=== PATIENT | female | born 1990 | race Caucasian/White ===

== ENCOUNTER 2016-10-07 18:15 | Emergency (ER) | payer OTHER ==
[2016-10-07 18:32] VITALS: PULSE 76; RESP 16
--- NOTE | 2016-10-07 19:20 | EDPHY ---
H & P Time Seen by Provider: 10/07/16 18:38 HPI/ROS: HPI Rectal bleeding. 26-year-old female by private vehicle with her boyfriend. This patient reports that she had a bowel movement at approximately 5:30 p.m.. She reports that she noticed some blood on the toilet paper after this bowel movement and noticed that there was some blood mixed in with the stool. She also noted a couple of drops of blood in the toilet bowl water itself. She describes a bowel movement is otherwise normal. She has not had any diarrhea or significant constipation. Last menstrual period was 1 month ago. She denies any vaginal bleeding currently. ROS: Constitutional: No fever, no chills. No weakness. Respiratory: No cough. No shortness of breath. Cardiac: No chest pain, no palpitations. Gastrointestinal: No abdominal pain, no vomiting, no diarrhea. Genitourinary: No hematuria. No dysuria or increased frequency with urination. As above. Musculoskeletal: No back pain. No neck pain. No myalgias or arthralgias. Skin: No rashes. Neurological: No headache. No focal weakness or altered sensation. Past medical history: She denies any significant past medical history. Social history: Here with her boyfriend. Nonsmoker. Physical Exam: General Appearance: Alert, no distress. This patient is responding to questions appropriately and in full sentences. This patient appears well- hydrated and well-nourished. Eyes: Pupils equal and round no pallor or injection. No lid edema, erythema or injection. Gastrointestinal: Abdomen is soft and nontender, no masses, bowel sounds normal. No focal tenderness at McBurney's point. No Khan sign. Rectal exam: No external hemorrhoids. Normal rectal tone. No gross bleeding. No gross blood on digital examination. No masses palpated. No anal fissures. Minimal stool in the rectal vault. Neurological: Motor sensory function is grossly intact. Cranial nerves are normal. Gait is normal. Skin: Warm and dry, no rashes. Musculoskeletal: Neck is supple and nontender. Extremities are symmetrical. All joints range without pain or impingement. Psychiatric: No agitation. No depression. Database: occult blood feces-negative. EKG: Imaging: Procedures: Emergency department course: 7:50 p.m., patient re-evaluated. She has had no rectal bleeding while in the emergency department. Her vital signs have been reviewed and have been normal. Results of her stool study were discussed with her. Plan will be to have her follow up with her primary care physician for re-evaluation and referral to Gastroenterology for possible colonoscopy. Return to emergency department precautions were discussed with her. She feels comfortable with this plan. All of her questions were answered. She was discharged in good condition. Differential Diagnosis: The differential diagnosis on this patient includes but is not limited to internal hemorrhoid, diverticulosis, anal fissure, upper GI source, malignancy. This represents a partial list of diagnoses considered. These considerations are based on history, physical exam, past history, reassessment and diagnostic testing. Smoking Status: Never smoked Constitutional: Initial Vital Signs Temperature (C) 36.4 C 10/07/16 18:29 Heart Rate 76 10/07/16 18:29 Respiratory Rate 16 10/07/16 18:29 Blood Pressure 112/81 H 10/07/16 18:29 O2 Sat (%) 98 10/07/16 18:29 O2 Delivery Mode Room Air Allergies/Adverse Reactions: No Known Allergies Allergy (Verified 05/01/16 18:11) Home Medications: Medication Instructions Recorded NK [No Known Home Meds] 10/05/15 Medical Decision Making - Data Points Laboratory Results: 10/07/16 19:10 Stool Occult Bld Scrn NEGATIVE (NEGATIVE) Departure - Departure Disposition: Home, Routine, Self-Care Clinical Impression: Rectal bleeding Condition: Good Instructions: Rectal Bleeding (ED) Additional Instructions: Read and follow provided instructions. Follow-up with your primary care physician in 1-2 days for re-evaluation. I have also provided you with the contact information for Gastroenterology for follow-up and further evaluation as discussed. Maintain a high-fiber diet. Return to the emergency department for significant bleeding, rectal pain, lightheadedness or other serious concerns. Referrals: Art Alvarez MD [Medical Doctor] - As per Instructions NONE *PRIMARY CARE P,. [Primary Care Provider] - As per Instructions Karla Morgan MD [Medical Doctor] - As per Instructions Francia Madison MD [Medical Doctor] - As per Instructions
[2016-10-07 20:40] VITALS: BP 115/85; TEMP 97.7; O2SAT 97
== END 2016-10-07 20:39 | disposition home or self-care (01) ==
DX: K62.5 Hemorrhage of anus and rectum (principal)